=== PATIENT | female | born 1950 | race Caucasian/White ===

== ENCOUNTER 2018-03-25 23:10 | Emergency (ER) | payer MEDICARE, BC ==
[~2018-03-25 23:10] MED LIST: predniSONE 10 MG Tab ONE
[2018-03-25] MEDS: Triamcinolone Acetonide 40 MG/ML 1 ML MDV INJECT ONE (23:45)
--- NOTE | 2018-03-26 07:55 | EDM.PDOC ---
ED HPI GENERAL MEDICAL PROBLEM - General Chief Complaint: General Stated Complaint: BACK PAIN Time Seen by Provider: 03/25/18 23:15 Source of Information: Reports: Patient History Limitations: Reports: No Limitations - History of Present Illness INITIAL COMMENTS - FREE TEXT/NARRATIVE: Pt presents to the emergency room with c/o left side buttock pain, which started today morning and has progressively got worse. Pt has had lumbar fusion done [address] Thomas at [facility] in [facility]. No radiation of pain. Pt has had some residual tingling in her left leg post surgery. No incontinence ot stool or urine. No difficulty walking. No fall or trauma to back. Pt is on tramadol, vicodin and gabapentin for her pain. 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 - Related Data Allergies Allergy/AdvReac Type Severity Reaction Status Date / Time celecoxib [From Celebrex] Allergy Cannot Verified 04/27/16 17:20 Remember Home Meds: Home Meds Glucosamine/Chondr Connor A Sod [Glucosamine-Chondroitin Tablet] 2 each PO DAILY [History] Diltiazem HCl [Cardizem Cd] 180 mg PO DAILY PRN 06/30/15 [History] Estradiol 1 mg PO DAILY 06/30/15 [History] Meloxicam [Mobic] 15 mg PO DAILY 06/30/15 [History] Topiramate [Topamax] 50 mg PO BID 04/27/16 [History] ED ROS GENERAL - Review of Systems Review Of Systems: See Below Constitutional: Denies: Fever, Chills HEENT: Denies: Nose Pain, Rhinitis, Throat Pain Respiratory: Denies: Shortness of Breath, Pleuritic Chest Pain, Cough, Sputum Cardiovascular: Denies: Chest Pain, Lightheadedness GI/Abdominal: Denies: Abdominal Pain, Nausea, Vomiting Musculoskeletal: Reports: Back Pain, Muscle Pain. Denies: Joint Pain, Joint Swelling Skin: Reports: Wound. Denies: Pruritis, Rash Neurological: Reports: Pre-Existing Deficit (left leg numbness) ED EXAM, GENERAL - Physical Exam Exam: See Below Exam Limited By: No Limitations General Appearance: Alert, WD/WN, No Apparent Distress Eye Exam: Bilateral Eye: EOMI, PERRL Ears: Normal External Exam, Normal Canal, Hearing Grossly Normal, Normal TMs Ear Exam: Bilateral Ear: Auricle Normal, Canal Normal, TM normal Nose: Normal Inspection, Normal Mucosa, No Blood Throat/Mouth: Normal Inspection, Normal Lips, Normal Teeth, Normal Gums, Normal Oropharynx, Normal Voice, No Airway Compromise Head: Atraumatic, Normocephalic Neck: Normal Inspection, Supple, Non-Tender, Full Range of Motion Respiratory/Chest: No Respiratory Distress, Lungs Clear, Normal Breath Sounds, No Accessory Muscle Use, Chest Non-Tender Cardiovascular: Normal Peripheral Pulses, Regular Rate, Rhythm, No Edema, No Gallop, No JVD, No Murmur, No Rub Back Exam: Normal Inspection (Thee a healing sutured wound over the lumbar spine. no erythema or discahrge.), Muscle Spasm, Other (Pt is tender over the left SI joint.SLR on the right side is 60 degree and left is 35 degrees due to pain in the back.). No: Vertebral Tenderness Neurological: Alert, Oriented, CN II-XII Intact, Normal Cognition, Normal Gait, Normal Reflexes, Sensory/Motor Deficit (residual sensory: numbness over the left leg) Course - Vital Signs Text/Narrative:: Pt has developed left SI joint strain, possibly while rolling in the bed. the pain has gradually got worse aas the day goes by. Pt reassured that this is mechanical pain for joint strain. she did receive kenalog 40mg and have placed her on prednisone taper dose. Advised intermittent heat to the lower back. avoid bending , squatting and twisting the lower back activities. Continue pain meds. Pt reassured that the surgical wound appears clean and healthy. Followup if symptoms worsen. - Orders/Labs/Meds Meds: Medications Discontinued Medications Generic Name Dose Route Start Last Admin Trade Name Freq PRN Reason Stop Dose Admin Triamcinolone Acetonide 40 mg 03/26/18 00:19 03/25/18 23:45 Kenalog-40 INJECT 03/26/18 00:20 40 mg ONETIME ONE Administration Departure - Departure Time of Disposition: 23:55 Disposition: Home, Self-Care 01 Condition: Fair Clinical Impression: SI (sacroiliac) joint dysfunction - Discharge Information Forms: ED Department Discharge Additional Instructions: Take Prednisone 60mg in am, 50mg day 2, 40mg day 3, 30mg day 4, 20mg day 5, 10mg day 6. Warm packs to back 10-15minutes 3-4 times a day. continue to take Tramadol and Oxycodone prn for pain. Follow up with Dr Pennington Wednesday as scheduled - Problem List & Annotations (1) SI (sacroiliac) joint dysfunction SNOMED Code(s): 295066409 Code(s): M53.3 - SACROCOCCYGEAL DISORDERS, NOT ELSEWHERE CLASSIFIED Status : Acute - Problem List Review Problem List Initiated/Reviewed/Updated: Yes - Assessment/Plan Assessment:: Left SI joint strain Plan: Pt has developed left SI joint strain, possibly while rolling in the bed. the pain has gradually got worse aas the day goes by. Pt reassured that this is mechanical pain for joint strain. she did receive kenalog 40mg and have placed her on prednisone taper dose. Advised intermittent heat to the lower back. avoid bending , squatting and twisting the lower back activities. Continue pain meds. Pt reassured that the surgical wound appears clean and healthy. Followup if symptoms worsen.
== END 2018-03-26 | disposition home or self-care (01) ==
LOC: LB.ED 23:10
DX: S39.012A Strain of muscle, fascia and tendon of lower back, initial encounter (principal); M53.3 Sacrococcygeal disorders, not elsewhere classified; Z88.8 Allergy status to other drugs, medicaments and biological substances; Z79.899 Other long term (current) drug therapy; Z98.1 Arthrodesis status; X58.XXXA Exposure to other specified factors, initial encounter
CPT/HCPCS: 96372; 99283; 99283-25; A9270-GY; J3301

== ENCOUNTER 2023-12-09 10:11 | Day surgery (SDC) | payer MEDICARE ==
[~2023-12-09 10:11] MED LIST changes: +Metoclopramide 10 MG/2 ML SDV IV PRN; -predniSONE 10 MG Tab ONE
[2023-12-09] MEDS: Sodium Chloride 0.9% 1,000 ML IV SCH (10:30)
[2023-12-09 13:17] VITALS: BP 138/73; PULSE 62
== END 2023-12-09 14:06 | disposition home or self-care (01) ==
LOC: LB.SDS 10:11
PROVIDERS: ATTEND Surgery
DX: Z12.11 Encounter for screening for malignant neoplasm of colon (principal); D12.3 Benign neoplasm of transverse colon; D12.5 Benign neoplasm of sigmoid colon; K29.50 Unspecified chronic gastritis without bleeding; K31.7 Polyp of stomach and duodenum; K44.9 Diaphragmatic hernia without obstruction or gangrene; K57.30 Diverticulosis of large intestine without perforation or abscess without bleeding; Z88.8 Allergy status to other drugs, medicaments and biological substances
CPT/HCPCS: 88305; J2704; J7030